=== PATIENT | male | born 1960 | race Caucasian/White ===

== ENCOUNTER 2016-11-12 14:06 | Emergency (ER) | payer SELFPAY ==
[~2016-11-12] VITALS: Ht 172.7 cm; Wt 58.1 kg
[2016-11-12 15:00] VITALS: BP 180/95
[2016-11-12] MEDS ORDERED: MORP15TA PO (15:05)
--- NOTE | 2016-11-12 15:05 | PHYS DOC ---
Past History Past Medical History: No Pertinent History Past Surgical History: Appendectomy Alcohol Use: Occasionally Drug Use: None Adult General Chief Complaint Chief Complaint: SHOULDER INJURY HPI HPI 56-year-old male presenting to the emergency department with right shoulder pain. His pain is been present for greater than a month. He has a history of having x-rays performed reports him being unremarkable. He has pain in his right shoulder it is a throbbing sensation nonradiating. He denies any recent injury. He has not been able to follow-up with his primary care physician at this point. Review of systems is negative for fevers chills. Negative for chest pain shortness of breath. All other review of systems is negative unless otherwise noted in history of present illness. Review of Systems Review of Systems SEE ABOVE. Allergies Allergies Allergies Coded Allergies Type Severity Reaction Last Updated Verified tetanus and diphtheria toxoids Allergy Intermediate swelling 11/12/16 Yes Physical Exam Physical Exam Constitutional: Well developed, well nourished, no acute distress, non-toxic appearance. HENT: Normocephalic, atraumatic, bilateral external ears normal, oropharynx moist, no oral exudates, nose normal. [] Eyes: PERRLA, EOMI, conjunctiva normal, no discharge. Neck: Normal range of motion, no tenderness, supple, no stridor. [] Cardiovascular:Heart rate regular rhythm, no murmur Lungs & Thorax: Bilateral breath sounds clear to auscultation [] Abdomen: Bowel sounds normal, soft, no tenderness, no masses, no pulsatile masses. [] Skin: Warm, dry, no erythema, no rash. Back: No tenderness, no CVA tenderness. [] Extremities: The patient's right upper extremity is nl temp and well perfused with a palpable pulse. Normal motor and sensation in the hand. The patient describes mild tingling sensation in the axillary nerve. Patient has pain with passive range of motion of the shoulder. The shoulder is not warm to touch (nursing note states it is) it is not. it is not when compared to the other shoulder. no erythema of the overlying skin. Neurologic: Alert and oriented X 3, normal motor function, normal sensory function, no focal deficits noted. Psychologic: Affect normal, judgement normal, mood normal. [] Current Patient Data Vital Signs Vital Signs Date Time Temp Pulse Resp B/P Pulse Ox O2 Delivery O2 Flow Rate FiO2 11/12/16 14:06 97.8 64 20 97 Room Air EKG EKG [] Radiology/Procedures Radiology/Procedures [] Course & Med Decision Making Course & Med Decision Making Pertinent Labs and Imaging studies reviewed. (See chart for details) [] 56-year-old male presenting to the emergency Department with chronic right shoulder pain. Vital signs showed the patient was afebrile. Hypertension present which is chronic. Previous x-rays reportedly unremarkable. I offered to repeat x-rays though I did not feel that this was necessary. Patient desires not to have repeat x-rays performed which I agree with. I offered the patient pain medications and referred him to his primary care physician for an outpatient MRI. The patient was then discharged home in stable condition to follow up with their primary care physician over the next 2-3 days. They were to return if there symptoms worsened or if they are concerned for any reason. [id number] discharge instructions and return precautions were given. Patient' s questions were answered to their satisfaction. Patient is comfortable plan. Dragon Disclaimer Dragon Disclaimer This chart was dictated in whole or in part using Voice Recognition software in a busy, high-work load, and often noisy Emergency Department environment. It may contain unintended and wholly unrecognized errors or omissions. Departure Departure: Impression: Primary Impression: Right shoulder pain Disposition: 01 HOME, SELF-CARE Condition: STABLE Referrals: [facility] (PCP) NUSRAT PIMENTEL DO Patient Instructions: Shoulder Pain, [id number] Additional Instructions: Thank you for allowing us to participate in your care today. Followup with your primary care physician in 3 days if your symptoms do not improve. If you do not have a primary care provider you can ask for a list of our primary care providers. Return to the emergency department you have any new or concerning findings. This should be evaluated by the primary care physician and any necessary consulting services for continued management within a few days after discharge. Return to emergency room if you have any new or concerning symptoms including but not limited to fever, chills, nausea, vomiting, intractable pain, any new rashes, chest pain, shortness of air, uncontrolled bleeding, difficulty breathing, and/or vision loss. You may have been prescribed medication that can change in your level of thinking and ability to operate machinery. These medications include hydrocodone and Ativan. Also, Benadryl has been known to do this as well. Be sure to check with your pharmacist and ask if the medications you've prescribed can affect your level of consciousness. I recommend not operating heavy machinery or driving while on medication such as these. Scripts Morphine Sulfate 15 Mg Tablet1 Tab PO PRN Q8HRS PRN SEVERE PAIN #8 TAB Be careful as this medication may make you sleepy or drowsy. Do not drive or operate heavy machinery on this medication. Be sure to ask the pharmacist about other side effects that can exist such as constipation. Prov:CAMDEN ATKINSON MD 11/12/16 CAMDEN ATKINSON MD Nov 12, 2016 15:05
== END 2016-11-12 15:15 | disposition home or self-care (01) ==
LOC: ER 14:06
DX: M25.511 Pain in right shoulder (principal); R20.2 Paresthesia of skin; Z88.7 Allergy status to serum and vaccine
CPT/HCPCS: 99283